=== PATIENT | female | born 1995 | race Two or more races ===

== ENCOUNTER 2018-09-06 06:11 | Emergency (ER) | payer SELFPAY ==
[~2018-09-06] VITALS: Ht 172.7 cm; Wt 72.6 kg
[2018-09-06 07:00] LABS: BASO # 0.1 x10^3/uL (0.0-0.2); BASO % 0 % (0-3); EOS # 0.2 x10^3/uL (0.0-0.7); EOS % 1 % (0-3); HEMATOCRIT 36.8 % (36.0-47.0); HEMOGLOBIN 12.7 g/dL (12.0-15.5); LYMPH # 1.4 x10^3/uL (1.0-4.8); LYMPH % 5 % (24-48); MEAN CORPUSCULAR HEMOGLOBIN 30 pg (25-35); MEAN CORPUSCULAR HGB CONC 35 g/dL (31-37); MEAN CORPUSCULAR VOLUME 86 fL (79-100); MONO # 0.9 x10^3/uL (0.0-1.1); MONO % 3 % (0-9); NEUT # 26.3 x10^3uL (1.8-7.7); NEUT % 91 % (31-73); PLATELET COUNT 303 x10^3/uL (140-400); RED BLOOD COUNT 4.29 x10^6/uL (3.50-5.40); RED CELL DISTRIBUTION WIDTH 13.9 % (11.5-14.5); WHITE BLOOD COUNT 28.8 x10^3/uL (4.0-11.0)
[2018-09-06] MEDS ORDERED: ONDANSETRON PF 4 MG/2 ML VIAL. IV ONE (07:00)
[2018-09-06] MEDS ORDERED: IV NORMAL SALINE 1000ML BAG 1,000 ML IV ONE ×2 (07:00→08:45)
[2018-09-06] MEDS ORDERED: IOHEXOL 300 MG/ML 100ML VIAL. IV ONE (07:00)
[2018-09-06 07:08] LABS: CREATININE 0.9 mg/dL (0.6-1.0); GFR 78.3; POTASSIUM 3.4 mmol/L (3.5-5.1)
[2018-09-06 07:14] LABS: ALBUMIN 3.5 g/dL (3.4-5.0); DIRECT BILIRUBIN 0.3 mg/dL (0.0-0.2); TOTAL BILIRUBIN 0.8 mg/dL (0.2-1.0); TOTAL PROTEIN 8.7 g/dL (6.4-8.2)
[2018-09-06] MEDS ORDERED: MORPHINE SULFATE 4 MG/ML VIAL. IV ONE ×2 (07:15→08:45)
[2018-09-06] MEDS ORDERED: CONTRAST GIVEN. MC PRN (07:15)
[2018-09-06 07:25] LABS: BILIRUBIN,URINE SMALL (NEG); CLARITY,URINE CLOUDY; COLOR,URINE ORANGE; NITRITE,URINE POSITIVE (NEG); PH,URINE 5.5; PROTEIN,URINE 100 mg/dL (NEG-TRACE)
[2018-09-06 07:43] LABS: SQUAMOUS EPITHELIAL CELL,UR MANY /LPF
[2018-09-06 07:44] LABS: BACTERIA,URINE 0 /HPF (0-FEW)
[2018-09-06 07:45] LABS: AMORPHOUS SEDIMENT,UR PRESENT /HPF; HYALINE CASTS, URINE OCCASIONAL /HPF
--- NOTE | 2018-09-06 08:12 | PHYS DOC ---
Past Medical History Past Medical History: No Pertinent History Past Surgical History: No Surgical History Alcohol Use: Occasionally Drug Use: None Adult General Chief Complaint Chief Complaint: ABDOMINAL PAIN HPI HPI Patient is a 22 year old female who presents with abdominal pain. Patient had onset of diffuse abdominal pain last night after she ate a burrito. She has also had multiple episodes of diarrhea over the course of the night. She had nausea but no emesis. No fever or chills. She states the pain has persisted and become worse. Denies prior history of abdominal surgeries. Her last menstrual cycle ended 3 days ago. She has never been . Denies urinary symptoms or vaginal symptoms. On arrival to the ER, her primary complaint is that the pain is very severe. Review of Systems Review of Systems Constitutional: Denies fever or chills Eyes: Denies change in visual acuity Respiratory: Denies cough or shortness of breath Cardiovascular: No additional information not addressed in HPI GI: as documented above : Denies dysuria Musculoskeletal: Denies back pain or joint pain Integument: Denies rash or skin lesions Neurologic: Denies headache Endocrine: Denies polyuria All other systems were reviewed and found to be within normal limits, except as documented in this note. Current Medications Current Medications Current Medications Medications (Trade) Dose Ordered Sig/April Start Time Stop Time Status Last Admin Dose Admin Ceftriaxone Sodium 50 ml @ 100 mls/hr 1X ONCE 09/06/18 08:45 09/06/18 09:14 DC 09/06/18 08:51 100 MLS/HR Diphenhydramine HCl (Benadryl) 25 mg 1X ONCE 09/06/18 10:15 09/06/18 10:16 Info (CONTRAST GIVEN -- Rx MONITORING) 1 each PRN DAILY PRN 09/06/18 07:15 09/08/18 07:14 Iohexol (Omnipaque 300 Mg/ml) 75 ml 1X ONCE 09/06/18 07:00 09/06/18 07:05 DC 09/06/18 07:00 75 ML Morphine Sulfate (Morphine Sulfate) 4 mg 1X ONCE 09/06/18 08:45 09/06/18 08:46 DC 09/06/18 08:53 4 MG Ondansetron HCl (Zofran) 4 mg 1X ONCE 09/06/18 07:00 09/06/18 07:01 DC 09/06/18 07:04 4 MG Sodium Chloride 1,000 ml @ 1,000 mls/hr 1X ONCE 09/06/18 08:45 09/06/18 09:44 DC 09/06/18 08:52 1,000 MLS/HR Allergies Allergies Allergies Coded Allergies Type Severity Reaction Last Updated Verified No Known Drug Allergies 09/06/18 No Physical Exam Physical Exam Constitutional: Well developed, well nourished, no acute distress, non-toxic appearance HENT: Normocephalic, atraumatic, bilateral external ears normal, oropharynx moist Eyes: PERRLA, EOMI, conjunctiva normal Neck: Normal range of motion Cardiovascular:Heart rate regular rhythm Lungs & Thorax: Bilateral breath sounds clear to auscultation Abdomen: diffusely tender but soft and with no guarding or rebound tenderness Skin: Warm Extremities: No edema Neurologic: Alert and oriented X 3 Psychologic: Affect normal Current Patient Data Vital Signs Vital Signs Date Time Temp Pulse Resp B/P (MAP) Pulse Ox O2 Delivery O2 Flow Rate FiO2 09/06/18 08:53 16 09/06/18 06:11 98.0 116 119/80 (93) 100 Room Air 98.0 Lab Values Laboratory Tests Test 09/06/18 06:24 09/06/18 06:27 09/06/18 06:45 Urine Collection Type Unknown Urine Color [place] Urine Clarity Cloudy Urine pH 5.5 Urine Specific [place] >=1.030 Urine Protein 100 mg/dL (NEG-TRACE) Urine Glucose (UA) Negative mg/dL (NEG) Urine Ketones (Stick) 15 mg/dL (NEG) Urine Blood Large (NEG) Urine Nitrite Positive (NEG) Urine Bilirubin Small (NEG) Urine Urobilinogen Dipstick 1.0 mg/dL (0.2 mg/dL) Urine Leukocyte Esterase Small (NEG) Urine RBC 1-2 /HPF (0-2) Urine WBC 11-20 /HPF (0-4) Urine Squamous Epithelial Cells Many /LPF Urine Amorphous Sediment Present /HPF Urine Bacteria 0 /HPF (0-FEW) Urine Hyaline Casts Occasional /HPF Urine Mucus Mod /LPF POC Urine HCG, Qualitative Hcg negative (Negative) White Blood Count 28.8 x10^3/uL (4.0-11.0) H Red Blood Count 4.29 x10^6/uL (3.50-5.40) Hemoglobin 12.7 g/dL (12.0-15.5) Hematocrit 36.8 % (36.0-47.0) Mean Corpuscular Volume 86 fL (79-100) Mean Corpuscular Hemoglobin 30 pg (25-35) Mean Corpuscular Hemoglobin Concent 35 g/dL (31-37) Red Cell Distribution Width 13.9 % (11.5-14.5) Platelet Count 303 x10^3/uL (140-400) Neutrophils (%) (Auto) 91 % (31-73) H Lymphocytes (%) (Auto) 5 % (24-48) L Monocytes (%) (Auto) 3 % (0-9) Eosinophils (%) (Auto) 1 % (0-3) Basophils (%) (Auto) 0 % (0-3) Neutrophils # (Auto) 26.3 x10^3uL (1.8-7.7) H Lymphocytes # (Auto) 1.4 x10^3/uL (1.0-4.8) Monocytes # (Auto) 0.9 x10^3/uL (0.0-1.1) Eosinophils # (Auto) 0.2 x10^3/uL (0.0-0.7) Basophils # (Auto) 0.1 x10^3/uL (0.0-0.2) Segmented Neutrophils % 67 % (35-66) H Band Neutrophils % 20 % (0-9) H Lymphocytes % 9 % (24-48) L Monocytes % 3 % (0-10) Eosinophils % 1 % (0-5) Toxic Granulation Present Toxic Vacuolation Present Platelet Estimate Adequate (ADEQUATE) Sodium Level 134 mmol/L (136-145) L Potassium Level 3.4 mmol/L (3.5-5.1) L Chloride Level 96 mmol/L (98-107) L Carbon Dioxide Level 24 mmol/L (21-32) Anion Gap 14 (6-14) Blood Urea Nitrogen 14 mg/dL (7-20) Creatinine 0.9 mg/dL (0.6-1.0) Estimated GFR (Cockcroft-Gault) 78.3 Glucose Level 118 mg/dL (70-99) H Calcium Level 10.0 mg/dL (8.5-10.1) Total Bilirubin 0.8 mg/dL (0.2-1.0) Direct Bilirubin 0.3 mg/dL (0.0-0.2) H Aspartate Amino Transferase (AST) 14 U/L (15-37) L Alanine Aminotransferase (ALT) 15 U/L (14-59) Alkaline Phosphatase 124 U/L (46-116) H Total Protein 8.7 g/dL (6.4-8.2) H Albumin 3.5 g/dL (3.4-5.0) Lipase 54 U/L (73-393) L Laboratory Tests 09/06/18 06:45 Laboratory Tests 09/06/18 06:45 EKG EKG [] Radiology/Procedures Radiology/Procedures CT abd/pelvis Visualized lung bases are clear. Liver, spleen, pancreas, and adrenal glands are normal. Kidneys are normal. Gallbladder fossa is unremarkable. Appendix is partially visualized. No definite inflammatory findings about the appendix or cecum. No extraluminal gas or obstruction. The distal ileum is unremarkable. Adnexal follicles are physiologic in appearance. Sacroiliac joint sclerosis bilaterally is advanced at the superior aspect.. No suspicious loculated collection. Slightly high density low pelvic level omentum is present of indeterminate significance. No arthritic changes bowel. L4-5 central disc herniation appears are present. Impression: No obstruction or definite inflammatory process. Subtle high density of the omental fat of the lower pelvic level is of indeterminate significance. No extraluminal gas or other associated suspicious finding. L4-5 central disc herniation appears to be present. Correlate clinically in determining further evaluation with MRI. Bilateral superior sacroiliitis. Correlate with clinical history. Course & Med Decision Making Course & Med Decision Making Pertinent Labs and Imaging studies reviewed. (See chart for details) Patient is seen and examined immediately on arrival to her room. She does appear to have some discomfort on exam although her abdomen is not surgical. Basic abdominal pain workup is ordered. Medications for pain and nausea. IV fluids. 10:00: Patient is seen in the ER for diffuse abdominal pain. During the ED course, the patient was given 2 L normal saline. She was found to have a urinary tract infection. She was given 1 g of Rocephin intravenously along with 2 doses of morphine for pain. Currently, her pain is completely resolved. Reexamination of the abdomen reveals a soft nontender abdomen. Specifically over the right upper quadrant there is no pain to palpation. Patient has tolerated fluids by mouth. Plan is for discharge home. The patient was noted to have leukocytosis. She will be placed on Levaquin over the next 5 days. She is provided Reglan as needed for nausea returns. She is advised to come back to the emergency department for any new or worsening concerns. Her family members the primary per diem interpreter during the ED course. Her questions are answered prior to discharge home. Dragon Disclaimer Dragon Disclaimer This electronic medical record was generated, in whole or in part, using a voice recognition dictation system. Departure Departure Referrals: NO PCP (PCP) Scripts Levofloxacin (LEVAQUIN) 500 Mg Tablet 500 MG PO DAILY for 5 Days, #5 TAB Prov: NIURKA HOUSTON DO 09/06/18 Metoclopramide Hcl (REGLAN) 10 Mg Tablet 1 TAB PO TID for nausea and vomiting, #12 TAB Prov: NIURKA HOUSTON DO 09/06/18 NIURKA HOUSTON DO Sep 06, 2018 08:12
--- NOTE | 2018-09-06 08:21 | RAD ---
Examination: CT ABD PELV W/ IV CONTRST ONLY History: ABD PAIN X 2 DAYS AFTER EATING A BURRITO INJ 75ML OMNI 300 NO PREV Comparison/Correlation: None Findings: Axial images of the abdomen and pelvis were obtained following 75 cc Omnipaque 300 IV. Sagittal and coronal reformatted images were provided. Visualized lung bases are clear. Liver, spleen, pancreas, and adrenal glands are normal. Kidneys are normal. Gallbladder fossa is unremarkable. Appendix is partially visualized. No definite inflammatory findings about the appendix or cecum. No extraluminal gas or obstruction. The distal ileum is unremarkable. Adnexal follicles are physiologic in appearance. Sacroiliac joint sclerosis bilaterally is advanced at the superior aspect.. No suspicious loculated collection. Slightly high density low pelvic level omentum is present of indeterminate significance. No arthritic changes bowel. L4-5 central disc herniation appears are present. Impression: No obstruction or definite inflammatory process. Subtle high density of the omental fat of the lower pelvic level is of indeterminate significance. No extraluminal gas or other associated suspicious finding. L4-5 central disc herniation appears to be present. Correlate clinically in determining further evaluation with MRI. Bilateral superior sacroiliitis. Correlate with clinical history. Electronically signed by: Tom Villalobos MD (09/06/2018 8:18 AM) [facility]
[2018-09-06 09:25] VITALS: BP 119/67
[2018-09-06] MEDS ORDERED: diphenhydrAMINE 50 MG/ML VIAL IVP ONE (09:30)
[2018-09-06 09:48] LABS: % BANDS 20 % (0-9); % EOS 1 % (0-5); % LYMPHS 9 % (24-48); % MONOS 3 % (0-10); % SEGS 67 % (35-66)
[2018-09-06 09:49] LABS: PLT ESTIMATE ADEQUATE (ADEQUATE); TOXIC GRANULATION PRESENT; TOXIC VACUOLATION PRESENT
[2018-09-06] MEDS ORDERED: METO10TA81 PO (10:06)
[2018-09-06] MEDS ORDERED: LEVO500T59 PO (10:06)
[2018-09-06] MEDS ORDERED: diphenhydrAMINE HCL 25 MG CAPSULE PO ONE (10:15)
== END 2018-09-06 10:42 | disposition home or self-care (01) ==
LOC: ER 06:11
DX: N39.0 Urinary tract infection, site not specified (principal); D72.829 Elevated white blood cell count, unspecified; M46.1 Sacroiliitis, not elsewhere classified
CPT/HCPCS: 36415; 74177; 80048; 80076; 81001; 81025; 83690; 85007; 85025; 96361; 96365; 96375; 96376; 99285; J0690; J2270; J2405; J7030; Q0163; Q9967